=== PATIENT | female | born 1985 | race African-American/Black ===

== ENCOUNTER 2022-10-16 19:56 | Emergency (ER) | payer SELFPAY ==
[~2022-10-16] VITALS: Ht 175.3 cm; Wt 75.3 kg
[2022-10-16 20:21] VITALS: BP 153/92
== END 2022-10-16 22:10 | disposition left against medical advice (07) ==
LOC: ER 19:56
DX: M79.605 Pain in left leg (principal); Z53.21 Procedure and treatment not carried out due to patient leaving prior to being seen by health care provider
CPT/HCPCS: 99281

== ENCOUNTER 2022-10-17 00:32 | Emergency (ER) | payer SELFPAY ==
[~2022-10-17] VITALS: Ht 175.3 cm; Wt 74.8 kg
[2022-10-17 00:57] VITALS: BP 136/92
== END 2022-10-17 03:50 | disposition left against medical advice (07) ==
LOC: ER 00:32
DX: Z53.21 Procedure and treatment not carried out due to patient leaving prior to being seen by health care provider (principal)
CPT/HCPCS: 99281